=== PATIENT | female | born 1975 | race Caucasian/White ===

== ENCOUNTER 2017-10-07 22:22 | Emergency (ER) | payer SELFPAY ==
[~2017-10-07] VITALS: Ht 157.5 cm; Wt 131.5 kg
[2017-10-07 22:30] VITALS: BP 120/80
[2017-10-07 22:35] VITALS: BP 120/80
--- NOTE | 2017-10-07 23:11 | NUR ---
PATIENT LEFT WITHOUT BEING SEEN BY DR. PITTMAN. NO FURTHER CARE PROVIDED FOR PATIENT.
== END 2017-10-07 23:11 | disposition left against medical advice (07) ==
LOC: MED 22:22
DX: R10.30 Lower abdominal pain, unspecified (principal); R19.7 Diarrhea, unspecified; Z53.21 Procedure and treatment not carried out due to patient leaving prior to being seen by health care provider